=== PATIENT | male | born 1985 | race African-American/Black ===

== ENCOUNTER 2019-05-21 14:24 | Emergency (ER) | payer MEDICAID ==
[~2019-05-21] VITALS: Ht 185.4 cm; Wt 78.0 kg
[2019-05-21 14:50] VITALS: BP 116/77
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
--- NOTE | 2019-05-21 15:55 | NUR ---
ROBERTA COLLINS SPOKE WITH DR KAY
== END 2019-05-21 16:16 | disposition home or self-care (01) ==
LOC: ED 15:50
DX: S62.326A Displaced fracture of shaft of fifth metacarpal bone, right hand, initial encounter for closed fracture (principal); G89.11 Acute pain due to trauma; F12.10 Cannabis abuse, uncomplicated; F17.200 Nicotine dependence, unspecified, uncomplicated; X58.XXXA Exposure to other specified factors, initial encounter; Y93.89 Activity, other specified; Y92.89 Other specified places as the place of occurrence of the external cause; Y99.8 Other external cause status
CPT/HCPCS: 99283

== ENCOUNTER 2019-05-30 06:45 | Day surgery (SDC) | payer MEDICAID ==
[~2019-05-30] VITALS: Ht 185.4 cm; Wt 78.0 kg
[2019-05-30 07:05] VITALS: BP 112/72
[2019-05-30] MEDS ORDERED: LACTATED RINGERS 1,000 ML IV SCH (07:08)
[2019-05-30] MEDS ORDERED: FENTANYL PF 100 MCG/2ML ONE ×2 (07:31→09:14)
[2019-05-30] MEDS ORDERED: BUPIVACAINE/PF 0.5% ONE (07:31)
[2019-05-30] MEDS ORDERED: MIDAZOLAM 1 MG/ML, 2ML ONE (07:31)
[2019-05-30] MEDS ORDERED: LIDOCAINE 1%, 20ML ONE (07:31)
[2019-05-30] MEDS ORDERED: PROPOFOL 10 MG/ML, 20ML ONE (07:51)
[2019-05-30] MEDS ORDERED: DIAZEPAM 5 MG/ML, 2ML IVPush PRN (08:30)
[2019-05-30] MEDS ORDERED: KETOROLAC 30 MG/1 ML IV PRN (08:30)
[2019-05-30] MEDS ORDERED: FENTANYL PF 100 MCG/2ML IV PRN (08:30)
[2019-05-30] MEDS ORDERED: PROMETHAZINE 25 MG/ML, 1ML IV PRN (08:30)
[2019-05-30] MEDS ORDERED: ACETAMINOPHEN 325 MG TABLET PO PRN (08:30)
[2019-05-30] MEDS ORDERED: MEPERIDINE/PF 25MG/0.5ML IVPush PRN (08:30)
[2019-05-30] MEDS ORDERED: LABETALOL 5MG/ML, 20ML IV PRN (08:30)
[2019-05-30] MEDS ORDERED: ALBUTEROL SULFATE 2.5 MG/3 ML NPPB PRN (08:30)
[2019-05-30] MEDS ORDERED: OXYcodone 5 MG/5 ML ORAL.SOL UDC PO PRN (08:30)
[2019-05-30] MEDS ORDERED: hydrALAzine 20 MG/ML, 1ML IV PRN (08:30)
[2019-05-30] MEDS ORDERED: OXYcodone 5 MG/5 ML ORAL.SOL UDC ONE (09:15)
[2019-05-30] MEDS ORDERED: HYDROmorphone 1 MG/ML, 1ML INJ ONE (09:18)
[2019-05-30] MEDS ORDERED: KETOROLAC 30 MG/1 ML ONE (09:18)
[2019-05-30] MEDS ORDERED: MEPERIDINE/PF 25MG/ML,1ML ONE (09:18)
[2019-05-30] MEDS: HYDROmorphone 2 MG/ML, 1ML IVPush PRN ×2 (09:45→09:51)
[2019-05-30] MEDS ORDERED: ONDANSETRON 2MG/ML, 2ML ONE (12:47)
[2019-05-30] MEDS ORDERED: CEFAZOLIN 1,000 MG ONE (12:47)
[2019-05-30] MEDS ORDERED: DEXAMETHASONE 4 MG/ML, 1ML ONE (12:47)
== END 2019-05-30 12:00 | disposition home or self-care (01) ==
LOC: OUT 06:45
PROVIDERS: ATTEND Orthopaedic Surgery
DX: S62.326A Displaced fracture of shaft of fifth metacarpal bone, right hand, initial encounter for closed fracture (principal); Z79.1 Long term (current) use of non-steroidal anti-inflammatories (NSAID); Z87.891 Personal history of nicotine dependence; W22.8XXA Striking against or struck by other objects, initial encounter; Y93.89 Activity, other specified; Y92.89 Other specified places as the place of occurrence of the external cause; Y99.8 Other external cause status
CPT/HCPCS: 26615; 73120; C1713; J0690; J1100; J1170; J1885; J2175; J2250; J2405; J2704; J3010; J7120

== ENCOUNTER 2019-07-03 05:58 | Emergency (ER) | payer MEDICAID ==
[~2019-07-03] VITALS: Ht 185.4 cm; Wt 77.0 kg
[2019-07-03 06:02] VITALS: BP 114/80
== END 2019-07-03 08:23 | disposition home or self-care (01) ==
LOC: ED 06:43
DX: S61.411A Laceration without foreign body of right hand, initial encounter (principal); X58.XXXA Exposure to other specified factors, initial encounter; Y93.89 Activity, other specified; Y92.009 Unspecified place in unspecified non-institutional (private) residence as the place of occurrence of the external cause; Y99.8 Other external cause status
CPT/HCPCS: 99283